=== PATIENT | male | born 1985 | race Caucasian/White ===

== ENCOUNTER → 2023-07-15 07:33 | Outpatient (REF) | payer OTHER, SELFPAY | LOC: HWRAD 07:33 | PROVIDERS: ATTENDING PHYSICIAN Internal Medicine Hematology & Oncology; FAMILY PHYSICIAN Physician Assistant Medical | DX: C62.12 Malignant neoplasm of descended left testis (principal) | CPT/HCPCS: 74177; Q9967 ==

== ENCOUNTER → 2024-01-13 07:14 | Outpatient (REF) | payer OTHER, SELFPAY | LOC: HWRAD 07:14 | PROVIDERS: ATTENDING PHYSICIAN Internal Medicine Hematology & Oncology; FAMILY PHYSICIAN Physician Assistant Medical | DX: C62.12 Malignant neoplasm of descended left testis (principal) | CPT/HCPCS: 74177; Q9967 ==

== ENCOUNTER → 2025-01-21 07:43 | Outpatient (REF) | payer OTHER, SELFPAY | LOC: RAD 07:43 | PROVIDERS: ATTENDING PHYSICIAN Internal Medicine Hematology & Oncology; FAMILY PHYSICIAN Physician Assistant Medical | DX: C62.12 Malignant neoplasm of descended left testis (principal) | CPT/HCPCS: 74177; Q9967 ==